=== PATIENT | female | born 1990 | race African-American/Black ===

== ENCOUNTER 2017-09-19 12:38 | Emergency (ER) | payer MEDICAID, OTHER ==
[~2017-09-19] VITALS: Ht 165.1 cm; Wt 90.0 kg
[2017-09-19] MEDS ORDERED: HYDROCODONE/ACETAMINOPHEN 5/325MG TABLET PO ONE (15:15)
[2017-09-19] MEDS ORDERED: CLINDAMYCIN HCL 150MG CAPSULE PO SCH (15:15)
[2017-09-19 18:51] VITALS: BP 130/88
== END 2017-09-19 19:07 | disposition home or self-care (01) ==
LOC: ER 15:08
DX: L02.415 Cutaneous abscess of right lower limb (principal); F17.210 Nicotine dependence, cigarettes, uncomplicated; Z88.0 Allergy status to penicillin; Z88.5 Allergy status to narcotic agent
CPT/HCPCS: 10060; 81025; 99283; Z7610